=== PATIENT | female | born 1950 | race Caucasian/White ===

== ENCOUNTER 2016-08-25 15:28 | Emergency (ER) | payer OTHER ==
[~2016-08-25] VITALS: Ht 157.5 cm; Wt 100.0 kg
[2016-08-25 16:50] LABS: HEMATOCRIT 36.5 % (36.0-46.0); MCH 26.8 PG (29.0-34.0); MCV 86.7 FL (83-99); MEAN PLAT.VOLUME 9.7 uM^3 (9.5-12.4); PLATELET COUNT 223 K/uL (156-360); RBC DIS.WIDTH-CV 13.9 % (11.8-14.6); RBC DIS.WIDTH-SD 44.1 % (39-53); RED BLOOD COUNT 4.21 M/uL (3.80-5.20)
[2016-08-25 17:01] LABS: CHLORIDE 109 mEq/L (99-109); POTASSIUM 3.9 mEq/L (3.7-5.4); SODIUM 142 mEq/L (136-147)
[2016-08-25 17:02] LABS: GLUCOSE 89 mg/dL (70-99)
[2016-08-25 17:04] LABS: ANION GAP 8 MEQ/L (2-14)
[2016-08-25 17:06] LABS: GFR ESTIMATE (CALCULATED) > 59 mL/min/
[2016-08-25 17:07] LABS: UREA NITROGEN (BUN) 26 mg/dL (9-23)
[2016-08-25 19:41] VITALS: BP 177/88
== END 2016-08-25 19:43 | disposition home or self-care (01) ==
LOC: EME 15:28
PROVIDERS: Physician Assistant Medical
DX: S30.1XXA Contusion of abdominal wall, initial encounter (principal); S51.812A Laceration without foreign body of left forearm, initial encounter; S10.91XA Abrasion of unspecified part of neck, initial encounter; V49.40XA Driver injured in collision with unspecified motor vehicles in traffic accident, initial encounter; I10 Essential (primary) hypertension
CPT/HCPCS: 73090; 74177; 80048; 85027; 99281; 99284; J7030